=== PATIENT | female | born 1965 | race Caucasian/White ===

== ENCOUNTER 2018-05-19 08:02 | Emergency (ER) | payer OTHER ==
[~2018-05-19] VITALS: Ht 154.9 cm; Wt 77.1 kg
--- NOTE | ~2018-05-19 | EKG ---
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1965 Requested By: Juni Rubio Order Number: [id number] MD: Damaso Ramachandran Measurements Intervals [place] Rate: 78 P: 32 [place]: 151 QRS: -18 QRSD: 88 T: 213 QT: 381 QTc: 434 Interpretive Statements Sinus rhythm Nonspecific T abnormalities, diffuse leads Compared to ECG 05/19/2018 08:02:54 No significant change was found Electronically Signed On 05-19-2018 13:00:02 CDT by Damaso Ramachandran [email or web address] <ELECTRONICALLY SIGNED> By: Damaso Ramachandran MD, [facility] 05/19/18 1300 1026 1026 Damaso Ramachandran MD, FACC /EPI
--- NOTE | ~2018-05-19 | EKG ---
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[facility] [employer] : 1965 Requested By: Juni Rubio Order Number: [id number] MD: Damaso Ramachandran Measurements Intervals [place] Rate: 86 P: 2 [place]: 124 QRS: -8 QRSD: 83 T: 206 QT: 373 QTc: 446 Interpretive Statements Sinus rhythm Poor R wave progression Nonspecific T wave abnormality No previous ECG available for comparison Electronically Signed On 05-19-2018 9:40:29 CDT by Damaso Ramachandran [email or web address] <ELECTRONICALLY SIGNED> By: Damaso Ramachandran MD, [facility] 05/19/18 0940 0802 08 Damaso Ramachandran MD, [facility] /EPI
[2018-05-19] MEDS ORDERED: OMEPRAZOLE 20 M20 M1 PO (08:05)
[2018-05-19] MEDS ORDERED: ESCITALOPRAM OX20 MG PO (08:06)
[2018-05-19] MEDS ORDERED: SYNTHROID50 MCG PO (08:06)
[2018-05-19 08:16] LABS: ABSOLUTE NEUTROPHILS 8.3 thou/uL (1.4-8.2); BASOPHILS 0.1 % (0.0-2.0); EOSINOPHILS 1.4 % (0.0-3.0); HEMOGLOBIN 11.4 gm/dL (12.0-15.0); MCH 25.3 pg (26.0-34.0); MCHC 33.6 g/dL (28.0-37.0); MCV 75.3 fL (80.0-100.0); MONOCYTES 3.8 % (1.0-8.0); PLATELET COUNT 306 thou/uL (150-400); POLYS 88.7 % (36.0-66.0); RBC 4.52 mil/uL (4.20-5.00); RDW 17.6 % (10.5-14.5); WBC 9.4 thou/uL (4.0-11.0)
[2018-05-19 08:31] LABS: ANION GAP 11 mmol/L (7-16); BUN 24 mg/dL (7-18); CALCIUM 8.9 mg/dL (8.5-10.1); CHLORIDE 102 mmol/L (98-107); CO2 24 mmol/L (21-32); CREATININE 0.9 mg/dL (0.6-1.0); GLUCOSE 123 mg/dL (74-106); POTASSIUM 4.1 mmol/L (3.5-5.1); SODIUM 137 mmol/L (136-145)
[2018-05-19 08:39] LABS: ALBUMIN 4.1 g/dL (3.4-5.0); SGOT 19 U/L (15-37); SGPT 26 U/L (30-65); TOTAL BILIRUBIN 0.5 mg/dL (<0.1-1.0); TROPONIN-I <0.06 ng/mL (<0.06)
[2018-05-19 10:48] VITALS: BP 124/81
== END 2018-05-19 10:48 | disposition home or self-care (01) ==
LOC: ER 08:02
PROVIDERS: Emergency Medicine
DX: R07.9 Chest pain, unspecified (principal); R11.0 Nausea; Z88.1 Allergy status to other antibiotic agents; Z88.0 Allergy status to penicillin; K21.9 Gastro-esophageal reflux disease without esophagitis; E03.9 Hypothyroidism, unspecified